=== PATIENT | female | born 1990 | race Caucasian/White ===

== ENCOUNTER → 2017-04-04 | Outpatient (CLI) | payer OTHER | END | disposition home or self-care (01) | LOC: CFH 07:07 | PROVIDERS: ATTEND Nurse Practitioner Primary Care | DX: R41.9 Unspecified symptoms and signs involving cognitive functions and awareness (principal); R79.9 Abnormal finding of blood chemistry, unspecified; R31.9 Hematuria, unspecified; R53.83 Other fatigue | CPT/HCPCS: 70551; 76770 ==

== ENCOUNTER → 2018-03-12 | Outpatient (CLI) | payer SELFPAY | END | disposition home or self-care (01) | LOC: CFH 11:02 | PROVIDERS: ATTEND Nurse Practitioner Primary Care | DX: R07.81 Pleurodynia (principal); E55.9 Vitamin D deficiency, unspecified; Z79.899 Other long term (current) drug therapy | CPT/HCPCS: 71046 ==

== ENCOUNTER → 2018-08-19 | Outpatient (CLI) | payer OTHER | END | disposition home or self-care (01) | LOC: CFH 08:09 | PROVIDERS: ATTEND Nurse Practitioner Primary Care | DX: J98.11 Atelectasis (principal); J40 Bronchitis, not specified as acute or chronic; Z79.899 Other long term (current) drug therapy | CPT/HCPCS: 71046 ==

== ENCOUNTER → 2018-12-03 | Outpatient (CLI) | payer OTHER ==
[~2018-12-03] MED LIST: OMNIPAQUE 350 MG/ML, 100ML BOTTLE ONE
== END | disposition home or self-care (01) ==
LOC: RAD 12:45
PROVIDERS: ATTEND Nurse Practitioner Primary Care
DX: R10.9 Unspecified abdominal pain (principal); R11.0 Nausea; R11.10 Vomiting, unspecified
CPT/HCPCS: 74177; Q9967